=== PATIENT | male | born 1995 | race Caucasian/White ===

== ENCOUNTER 2021-12-31 14:23 | Emergency (ER) | payer OTHER, SELFPAY ==
--- NOTE | ~2021-12-31 | XR_ITS ---
EXAMINATION: XR CHEST CLINICAL INFORMATION: Chest pain, palpitations COMPARISON: None TECHNIQUE: Frontal view of the chest was obtained. FINDINGS: No significant abnormality is noted involving the heart, lungs, mediastinum, bony thorax or soft tissues. XR/XR chest 1V IMPRESSION: Unremarkable examination.
[2021-12-31 14:27] VITALS: BP 149/92; PULSE 97; RESP 18; TEMP 36.5; O2SAT 100; BMI 25.8
--- NOTE | 2021-12-31 14:29 | ECG_ITS ---
Test Reason : palpitations Blood Pressure : / mmHG Vent. Rate : 084 BPM Atrial Rate : 084 BPM P-R Int : 134 ms QRS Dur : 094 ms QT Int : 354 ms P-R-T Axes : 074 058 059 degrees QTc Int : 418 ms Normal sinus rhythm RSR' or QR pattern in V1 suggests right ventricular conduction delay Otherwise normal ECG When compared with ECG of 27-JUN-2017 13:28, No significant change was found Referred By: Generic ED Physician Electronically Signed By:JULIETA ESPINOZA MD
[2021-12-31 14:42] LABS: MANUAL DIFF FLAG NO
[2021-12-31 14:46] LABS: Basophils Percent Auto 0.3 % (0-2); Eosinophils Absolute Auto 0.1 X10*3/uL (0.0-0.4); Hematocrit 44.6 % (42.0-52.0); Imm Gran Abs Auto 0.01 X10*3/uL (0.00-0.03); Imm Gran Pct Auto 0.1 % (0.0-0.4); Lymphocytes Absolute Auto 2.2 X10*3/uL (1.2-4.9); Lymphocytes Percent Auto 31.3 % (20-40); Mean Corpuscular HGB Conc 35.9 g/dl (31.0-36.0); Mean Corpuscular Hemoglobin 29.2 pg (27.0-33.0); Mean Corpuscular Volume 81.4 fL (80.0-98.0); Mean Platelet Volume 9.6 fL (9.4-12.4); Monocytes Absolute Auto 0.5 X10*3/uL (0.1-1.2); Monocytes Percent Auto 7.7 % (2-11); Neutrophils Percent Auto 58.6 % (45-73); Platelet Count 329 X10*3/uL (160-400); Red Blood Count 5.48 X10*6/uL (4.60-5.80); White Blood Count 6.9 X10*3/uL (4.8-10.8)
[2021-12-31 14:56] LABS: COVID-19 Test Positive (Negative)
[2021-12-31 14:59] LABS: Alanine Aminotransferase 35 U/L (0-40); Alkaline Phosphatase 71 U/L (39-117); Anion Gap 18 (12-20); Aspartate Amino Transferase 26 U/L (5-37); Bilirubin Direct 0.3 mg/dL (0.0-0.5); Bilirubin Total 0.8 mg/dL (0.0-1.0); Blood Urea Nitrogen 12 mg/dL (9-16); Calcium 10.2 mg/dL (8.4-10.2); Carbon Dioxide 22 mmol/L (22-29); Chloride 102 mmol/L (96-108); Estimated Glomerular Filt Rate > 60; Glucose Random 113 mg/dL (60-115); Lipase 10 U/L (8-78); Sodium 138 mmol/L (135-145); Total Protein 7.6 g/dL (6.5-8.0)
[2021-12-31 15:02] LABS: IDNOW Serial# 9DB6401D; Influenza A Negative (Negative); Influenza B2 Negative (Negative)
[2021-12-31 15:03] LABS: Troponin-I High Sensitivity < 3.5 ng/L (<3.5-35.0)
[2021-12-31 18:54] VITALS: BP 149/91; PULSE 88; RESP 18; TEMP 37; O2SAT 100
--- NOTE | 2021-12-31 20:08 | ED_ITS ---
HPI - General Adult General Chief complaint: Arrhythmia/Palpitations Stated complaint: COVID+/panic attacks Time Seen by Provider: 12/31/21 20:08 Source: patient Mode of arrival: ambulatory Limitations: no limitations History of Present Illness HPI narrative: 26-year-old male with history of anxiety presents to the emergency department complaining of intermittent palpitations and headaches x5 days. Patient states he tested positive for covid on 12/22 and he is unsure if his symptoms are related to covid. Patient states he is experiencing pressure in his chest and a burning in his heart and it feels like his heart is beating out of his chest. Patient states he feels like he is forgetting to breath. Additionally patient complains of a headache and dizziness for the last week. Patient states he has taken Tylenol which he states has made it worse. Headache feels like his typical, with no associated vision changes or trauma. Patient states he has been off his anxiety meds for the last 6 years. Patient states he previously has had panic attacks in the past and he is unsure if these are the same s ymptoms. Additionally patient states in the last week he lost 20 lbs from not eating, tells me this happens when he doesnt eat and when he has anxiety. Patient states in the past when he had panic attack he also would lose weight. Denies fevers, nausea, vomiting, chills, vision changes, diarrhea, constipation, weakness. Denies SI/HI. Denies V/A/T hallucinations NIHSS-0 Related Data Allergies Allergy/AdvReac Type Severity Reaction Status Date / Time NSAIDS (Non-Steroidal Allergy Unknown NAUSEA & Unverified 11/28/19 19:17 Anti-Inflamma VOMITING [NSAIDS (NON-STEROIDAL ANTI-INFLAMMA] Review of Systems Review of Systems: Constitutional : + Weight loss, No Fever, No Chills, No Fatigue, No Malaise ENT/Mouth : No sore throat, No Rhinorrhea Eyes: No Eye Pain, No Swelling, No Redness Cardiovascular : No Chest Pain, No SOB, No Dyspnea on Exertion, No Orthopnea, No Edema, + Palpitations Respiratory : No Cough, No Sputum, No Wheezing Gastrointestinal : No Nausea, No Vomiting, No Diarrhea, No Constipation, No abdominal Pain, No Hematochezia, No Melena Genitourinary : No Dysuria, No Urinary Frequency, No Hematuria, Musculoskeletal : No joint pain, No Myalgias, No Joint Swelling Skin : No Skin Lesions, No rash Neuro : No Weakness, No Numbness, No Dizziness, No Headache Psych : + Anxiety/Panic, No Depression All other systems reviewed and are negative Yes all other systems are reviewed and are negative [facility] Past Medical History Attestation statement: The following information was validated with the patient. Source: old records reviewed and nursing notes reviewed Social History Social History Advance Directives: No Advance Directives Information Provided: No Physical Exam ED Vital Signs: Vital Signs - 24 hr 12/31/21 14:27 12/31/21 18:54 Temperature 97.7 F 98.6 F Pulse Rate 97 88 Respiratory Rate 18 18 Blood Pressure 149/92 H 149/91 H Pulse Oximetry 100 100 Oxygen Delivery Method Room Air Room Air BMI result Body Mass Index 25.8 vss Appearance: Alert.? Oriented X3.? No acute distress.? Head: Normocephalic, atraumatic, no step-offs or deformities Eyes: Pupils equal, round and reactive to light.? ENT: Pharynx normal.? Neck: Normal inspection.? Neck supple.? CVS: Normal heart rate and rhythm.? Pulses normal.? Respiratory: No respiratory distress.? Breath sounds normal.? Abdomen: Soft and nontender.? Skin: Skin warm and dry.? Normal skin color.? Normal skin turgor.? Extremities: No lower extremity edema.? No calf ttp,negative jamari. 5/5 strength to bilateral upper and lower extremities Neuro: Oriented X 3.? No motor deficit.? No sensory deficit. CN 2-12 intact . Normal [id number], [id number], steady tandem gait. Course Reevaluation(s) Reevaluation #1: CBC appears to be within normal limits. Chemistry with no acute findings. Troponin negative, EKG nonischemic unlikely ACS. Patient noted to still be COVID positive. Chest x-ray with no acute findings. COVID negative unlikely that this is PE. Likely diagnosis anxiety. Time: 21:34 Reevaluation #2: At this time patient will be discharged home advised return with new or worsening symptoms, educated on worsening signs and symptoms and when to return. At this time I feel comfortable with discharge home with prompt PCP follow-up. Time: 21:34 Reevaluation #3: Patient requesting to speak to care team. Time: 21:40 Additional Reevaluation(s): Adelaida from care team spoke to patient and gave him resources. Time of evaluation denies SI and HI to care team and myself. Comfortable discharge home with prompt PCP and psychiatry follow-up. Medical Decision Making MDM Narrative Medical decision making narrative: 2011 26 year old male presents with palpiations, anxiety and chest discomfort X 9 days. Patient tested covid + on 12/22 PE benign Likley anxiety. Unlikley ACS, PE, PNA, stroke, intracranial hemorrhage, posterior stroke. Plan- labs, ekg, trop, dimer, cxr Medical Records Medical records reviewed: Yes I reviewed the patient's medical records. Lab Data Lab results reviewed: Yes I reviewed the patient's lab results. Result diagrams: 12/31/21 14:35 12/31/21 14:35 Labs: Lab Results 12/31/21 12/31/21 12/31/21 Range/Units 14:35 14:35 14:35 WBC 6.9 (4.8-10.8) X10*3/uL RBC 5.48 (4.60-5.80) X10*6/uL Hgb 16.0 (14.0-18.0) g/dl Hct 44.6 (42.0-52.0) % MCV 81.4 (80.0-98.0) fL MCH 29.2 (27.0-33.0) pg MCHC 35.9 (31.0-36.0) g/dl RDW 12.0 (11.0-16.0) % Plt Count 329 (160-400) X10*3/uL MPV 9.6 (9.4-12.4) fL Immature Gran % (Auto) 0.1 (0.0-0.4) % Neut % (Auto) 58.6 (45-73) % Lymph % (Auto) 31.3 (20-40) % Knox % (Auto) 7.7 (2-11) % Eos % (Auto) 2.0 (0-4) % Baso % (Auto) 0.3 (0-2) % Lymph # (Auto) 2.2 (1.2-4.9) X10*3/uL Knox # (Auto) 0.5 (0.1-1.2) X10*3/uL Eos # (Auto) 0.1 (0.0-0.4) X10*3/uL Baso # (Auto) 0.0 (0.0-0.2) X10*3/uL Abs Immat Gran (auto) 0.01 (0.00-0.03) X10*3/uL Absolute Neuts (auto) 4.0 (2.0-8.3) x10*3/uL Absolute Nucleated RBC 0.000 (0.0-0.012) X10*3/uL Nucleated RBC % (auto) 0.0 (0.0-0.2) /100WBC D-Dimer High Sensitivty NG/ML Sodium 138 (135-145) mmol/L Potassium 4.0 (3.3-5.1) mmol/L Chloride 102 (96-108) mmol/L Carbon Dioxide 22 (22-29) mmol/L Anion Gap 18 (12-20) BUN 12 (9-16) mg/dL Creatinine 0.97 (0.5-1.4) mg/dL Estim Creat Clear Calc 117.0 Estimated GFR > 60 Random Glucose 113 (60-115) mg/dL Calcium 10.2 (8.4-10.2) mg/dL Total Bilirubin 0.8 (0.0-1.0) mg/dL Direct Bilirubin 0.3 (0.0-0.5) mg/dL AST 26 (5-37) U/L ALT 35 (0-40) U/L Alkaline Phosphatase 71 (39-117) U/L Troponin I High Sens < 3.5 (<3.5-35.0) ng/L Total Protein 7.6 (6.5-8.0) g/dL Albumin 5.0 (3.5-5.0) g/dL Lipase 10 (8-78) U/L COVID-19 (LLOYD) (Negative) COVID-19 Clin Com Influenza Type A (ODELL) (Negative) Influenza Type B (ODELL) (Negative) Influenza A & B Note 12/31/21 12/31/21 12/31/21 Range/Units 14:35 14:35 20:26 WBC (4.8-10.8) X10*3/uL RBC (4.60-5.80) X10*6/uL Hgb (14.0-18.0) g/dl Hct (42.0-52.0) % MCV (80.0-98.0) fL MCH (27.0-33.0) pg MCHC (31.0-36.0) g/dl RDW (11.0-16.0) % Plt Count (160-400) X10*3/uL MPV (9.4-12.4) fL Immature Gran % (Auto) (0.0-0.4) % Neut % (Auto) (45-73) % Lymph % (Auto) (20-40) % Knox % (Auto) (2-11) % Eos % (Auto) (0-4) % Baso % (Auto) (0-2) % Lymph # (Auto) (1.2-4.9) X10*3/uL Knox # (Auto) (0.1-1.2) X10*3/uL Eos # (Auto) (0.0-0.4) X10*3/uL Baso # (Auto) (0.0-0.2) X10*3/uL Abs Immat Gran (auto) (0.00-0.03) X10*3/uL Absolute Neuts (auto) (2.0-8.3) x10*3/uL Absolute Nucleated RBC (0.0-0.012) X10*3/uL Nucleated RBC % (auto) (0.0-0.2) /100WBC D-Dimer High Sensitivty < 150 NG/ML Sodium (135-145) mmol/L Potassium (3.3-5.1) mmol/L Chloride (96-108) mmol/L Carbon Dioxide (22-29) mmol/L Anion Gap (12-20) BUN (9-16) mg/dL Creatinine (0.5-1.4) mg/dL Estim Creat Clear Calc Estimated GFR Random Glucose (60-115) mg/dL Calcium (8.4-10.2) mg/dL Total Bilirubin (0.0-1.0) mg/dL Direct Bilirubin (0.0-0.5) mg/dL AST (5-37) U/L ALT (0-40) U/L Alkaline Phosphatase (39-117) U/L Troponin I High Sens (<3.5-35.0) ng/L Total Protein (6.5-8.0) g/dL Albumin (3.5-5.0) g/dL Lipase (8-78) U/L COVID-19 (LLOYD) Positive A (Negative) COVID-19 Clin Com See Note Influenza Type A (ODELL) Negative (Negative) Influenza Type B (ODELL) Negative (Negative) Influenza A & B Note See Note ECG Data Attestation: I personally reviewed and interpreted this ECG as follows: Prior ECG tracings: available for review Interpretation: Ventricular rate of 84, W[place] normal, QRS normal, QT/QTC normal. EKG with normal s inus rhythm, no ST elevations or inversions concerning for ischemia. No significant changes when compared to 06/27/2017. Critical Care Time Critical Care Time Critical Care Time: No Discharge Plan Discharge Clinical Impression: COVID, Palpitations, Anxiety Patient Disposition: Home, Self-Care Additional Instructions: Take your medications as prescribed. If you were prescribed antibiotics today, it is important that you take your medication to their entirety, do not skip any doses, do not finish them early. Today you tested positive for COVID-19 on 12/22 you are still symptomatic therefor quarantine until symptom resolution or fever free for greater than 24 hours. Take Ibuprofen or Tylenol as needed for fevers or body aches. Quarantine for 5 days and ensure you wear a mask. After 5 days you should wear a mask for 5 days after that. Practice social distancing and good hand hygiene. Drink plenty of fluids. Follow-up with your primary care provider this week. Return to the emergency department with new or worsening symptoms. In case of emergency call 911 You can purchase a pulse oximeter from your local pharmacy or grocery store, and monitor your oxygen saturation if it goes below 94% you should return to the emergency department for further evaluation. Your weight loss complaint needs to be discussed with your PCP. Referrals: [facility] [Provider Group] - 1 day Physician,Unknown J [Primary Care Provider] - 1 week Stand Alone Forms: Work/School Release Interventions: ED Discharge Assessment Last Done: 12/31/21 22:10 Discharge Date/Time: 12/31/21 22:10
[2021-12-31 20:50] LABS: D Dimer High Sensitivity < 150 NG/ML
--- NOTE | 2021-12-31 21:53 | MHC.CARE ---
Care Team received a consult for anxiety and T/W met with pt in [facility] room 4. Pt stated he thinks its COVID triggering the anxiety. He reported ever since he had COVID he started getting panic attacks and stated he does not know where its coming from. Pt stated nothing has changed. Pt reported he does not have a primary care physician, T/W advised pt to follow up with [facility] to request a list of providers. Care Team provided Pt with a [facility] pamphlet.
== END 2021-12-31 22:10 | disposition home or self-care (01) ==
PROVIDERS: Physician Assistant; Emergency Provider Emergency Medicine
DX: U07.1 COVID-19 (principal); R00.2 Palpitations; F41.9 Anxiety disorder, unspecified
CPT/HCPCS: 36415; 71045; 80053; 82248; 83690; 84484; 85025; 85379; 87502; 87635; 93005; 99283